=== PATIENT | female | born 1985 ===

== ENCOUNTER 2018-01-20 16:59 | Inpatient (IN) | payer OTHER ==
[2018-01-20] MEDS: LR 1,000 ML IV (17:53)
[2018-01-20] MEDS: LACTATED RINGER'S 1000 ML IV (18:22)
[2018-01-20 18:23] LABS: BASO % 0.3 % (0.0-1.0); EOS # 0.2 10^3/uL (0.0-0.50); EOS % 1.6 % (0.0-3.0); HEMOGLOBIN 12.1 g/dl (12.0-16.0); IMMATURE GRANULOCYTE % 1.5 % (0-3.0); LYMPH # 2.9 10^3/uL (1.5-4.5); LYMPH % 25.1 % (24.0-44.0); MEAN CORPUSCULAR HEMOGLOBIN 31.3 pg (27.0-33.0); MEAN CORPUSCULAR HGB CONC 34.6 g/dl (32.0-36.5); MEAN CORPUSCULAR VOLUME 90.4 fl (80.0-96.0); MONO # 0.8 10^3/uL (0.0-0.8); MONO % 6.9 % (0.0-5.0); NEUTROPHILS # 7.5 10^3/uL (1.8-7.7); NEUTROPHILS % 64.6 % (36.0-66.0); PLATELET COUNT, AUTOMATED 257 10^3/uL (150-450); RED BLOOD COUNT 3.87 10^6/uL (4.00-5.40); RED CELL DISTRIBUTION WIDTH 13.2 % (11.5-14.5); WHITE BLOOD COUNT 11.6 10^3/uL (4.0-10.0)
[2018-01-20 18:43] LABS: AMPHETAMINES URINE REFLEX NEGATIVE (NEGATIVE); BARBITURATES URINE REFLEX NEGATIVE (NEGATIVE); BENZODIAZEPINES URINE REFLEX NEGATIVE (NEGATIVE); CANNABINOIDS URINE REFLEX NEGATIVE (NEGATIVE); COCAINE METABOLITE URINE REFLE NEGATIVE (NEGATIVE); METHADONE URINE REFLEX NEGATIVE (NEGATIVE); OPIATES URINE REFLEX NEGATIVE (NEGATIVE); PHENCYCLIDINE URINE REFLEX NEGATIVE (NEGATIVE)
[2018-01-20] MEDS ORDERED: FENTANYL 2MCG/ML ROPIVACAINE 0.2% IN 0.9% NACL 200ML IVBAG As Ordered (19:08)
[2018-01-20] MEDS ORDERED: EPIDURAL/PCA KEYS XX (19:25)
[2018-01-20] MEDS ORDERED: diphenhydrAMINE INJ 50MG/ML VIAL (J1200) IV (19:25)
[2018-01-20] MEDS ORDERED: ePHEDrine SULFATE 25 MG/5 ML(5MG/ML) SYRINGE IV (19:25)
[2018-01-20] MEDS ORDERED: FENTANYL/ROPIVACAINE/NACL BAG 200 ML EPIDURAL (19:25)
[2018-01-20] MEDS ORDERED: REFRIGERATOR IV KEYS XX (19:25)
[2018-01-20] MEDS ORDERED: EPIDURAL COMMENT XX (19:25)
[2018-01-20] MEDS ORDERED: ONDANSETRON 4MG/2ML VIAL (J2405) IV ×2 (19:25→21:45)
[2018-01-20] MEDS ORDERED: NALOXONE INJ 0.4 MG/1 ML VIAL (J2310) IV (19:25)
[2018-01-20] MEDS ORDERED: LACTATED RINGER'S 1000 ML IV (19:25)
[2018-01-20] MEDS ORDERED: OXYTOCIN 30 UNITS IN 0.9% NaCl 500ML IV BAG (J2590) As Ordered (20:19)
[2018-01-20] MEDS: OXYTOCIN DRIP 30 UNITS in APPROPRIATE DILUENT 1 EA IV (21:34)
[2018-01-20] MEDS ORDERED: METHYLERGONOVINE MALEATE 0.2 MG TAB PO (21:45)
[2018-01-20] MEDS ORDERED: DIBUCAINE 1% OINTMENT 30GM TOP (21:45)
[2018-01-20] MEDS ORDERED: PROMETHAZINE 25 MG TAB PO (21:45)
[2018-01-20] MEDS ORDERED: ANUSOL HC CREAM 30GM TOP (21:45)
[2018-01-20] MEDS ORDERED: MOM 30ML SUSPENSION UDC PO (21:45)
[2018-01-21] MEDS: IBUPROFEN 600 MG TAB PO ×3 (00:44→15:49)
[2018-01-21] MEDS: DOCUSATE SODIUM 100 MG CAP PO (00:44)
[2018-01-21] MEDS: ACETAMINOPHEN TAB 650MG DOSE (2X325MG) PO (08:04)
[2018-01-21] MEDS: PRENATAL VITAMINS CHEWABLE TABLET PO (08:04)
[2018-01-21] MEDS: MEASLES,MUMPS,RUBELLA VACCINE INJ (MMR-II) (90707) SC (09:12)
[2018-01-21] MEDS: RHOGAM 300 MCG (1500 IU) INJ (J2790) IM (09:12)
[2018-01-22] MEDS: IBUPROFEN 600 MG TAB PO ×2 (00:40→08:50)
[2018-01-22] MEDS: PRENATAL VITAMINS CHEWABLE TABLET PO (08:43)
== END 2018-01-22 13:25 | disposition home or self-care (01) | DRG 775 ==
LOC: M LDO 16:59 → M LDI 17:32 → M OBS 23:48
PROVIDERS: Obstetrics & Gynecology
PROC: 10E0XZZ Delivery of Products of Conception, External Approach (ICD-10-PCS; principal; 2018-01-20)
DX: O69.89X0 Labor and delivery complicated by other cord complications, not applicable or unspecified (principal); Z37.0 Single live birth; Z3A.39 39 weeks gestation of pregnancy